=== PATIENT | female | born 1990 | race Caucasian/White ===

== ENCOUNTER 2022-07-14 12:27 | Emergency (ER) | payer OTHER, SELFPAY ==
[2022-07-14 12:36] VITALS: BP 130/66; PULSE 91; RESP 20; TEMP 37.3; O2SAT 98
--- NOTE | 2022-07-14 12:42 | ED.URI ---
HPI - URI/Sore Throat General Chief Complaint: Upper Respiratory Infection Stated Complaint: sinus issues Time Seen by Provider: 07/14/22 12:44 Source: patient and RN notes reviewed History of Present Illness HPI Narrative: Patient is a 32-year-old female who presents to urgent care with complaints of sinus congestion, drainage, watery eyes and sore throat. Patient states that started last night when she was outside fishing. Patient states she has a history of allergies. Patient has not taken anything [id number] for her symptoms. Denies any fever, nausea or vomiting. No other acute complaints. No acute distress noted. Patient aware of the plan of care. Some parts of this dictation were generated by voice recognition software and may contain typographical and/or grammatical inaccuracies. Related Data Home Medications Medication Instructions Recorded Confirmed No Home Medications 07/14/22 07/14/22 Allergies Allergy/AdvReac Type Severity Reaction Status Date / Time No Known Allergies Allergy Verified 07/14/22 12:40 Review of Systems Review of Systems: CONSTITUTIONAL: Denies fever, chills, or sweats. EYES: Denies visual changes, redness, or discharge. ENT: Reports of sinus congestion, sore throat, postnasal drainage CARDIOVASCULAR: Denies chest pain, palpitations, or edema. RESPIRATORY: Denies cough or dyspnea. GASTROINTESTINAL: Denies abdominal pain, nausea, vomiting, or diarrhea. GENITOURINARY: Denies dysuria or hematuria. SKIN: Denies rash or itching. MUSCULOSKELETAL: Denies back pain, joint pain, or myalgia. NEUROLOGIC: Denies headache, numbness, or weakness. All other systems reviewed are negative, except as documented in HPI. PMFSH Comments At the time of my signature, I reviewed and agree with the nursing past medical, surgical, social, and family history. There is no relevant family history pertinent to the patient complaint. Exam Narrative: GENERAL: This is a well-nourished, well-developed patient, in no apparent distress. HEAD: normocephalic, atraumatic. Frontal sinus tenderness reported EYES: PERRL. Sclera clear/white. Vision is grossly intact. EARS: External ears normal, auditory canals clear and without drainage, TMs normal without perforation. Hearing grossly intact. NOSE: External nose normal with no obvious nasal discharge, nares without redness, clear rhinorrhea. THROAT: Mucous membranes moist, posterior pharynx clear. Moderate postnasal drainage NECK: Neck supple CARDIOVASCULAR: Regular rate and rhythm RESPIRATORY: Clear to auscultation. Breath sounds equal bilaterally. No wheezes, rales, or rhonchi. SKIN: warm, intact with no suspicious lesions or rash, good texture and turgor. NEURO: awake, alert, and oriented to person, place and time. There were no obvious focal neurologic abnormalities. EXTREMITIES: No clubbing, cyanosis, or edema. Course Course Level of Care: Express Care Visit Vital Signs Vital signs: Vital Signs Temperature 99.1 F 07/14/22 12:36 Pulse Rate 91 07/14/22 12:36 Respiratory Rate 20 07/14/22 12:36 Blood Pressure 130/66 07/14/22 12:36 Pulse Oximetry 98 07/14/22 12:36 Oxygen Delivery Room Air 07/14/22 12:36 Temperature 99.1 F 07/14/22 12:36 Pulse Rate 91 07/14/22 12:36 Respiratory Rate 20 07/14/22 12:36 Blood Pressure 130/66 07/14/22 12:36 Pulse Oximetry 98 07/14/22 12:36 Oxygen Delivery Room Air 07/14/22 12:36 Reviewed MDM - URI/Sore Throat MDM Narrative Medical decision making narrative: Reviewed lab results with the patient. She is aware that strep swab was negative. Educated patient on culture we will call within 72 hours if culture is positive antibiotics are necessary. Advised patient to use Tylenol/ibuprofen as needed. Take a daily antihistamine such as Claritin or Zyrtec. Use Benadryl/Flonase prior to bedtime. Increase water intake. Do not sleep with a fan or the windows open. Follow-up with your PCP
== END 2022-07-14 13:05 | disposition home or self-care (01) ==
PROVIDERS: Emergency Provider Nurse Practitioner Family
DX: J32.9 Chronic sinusitis, unspecified (principal)
CPT/HCPCS: 87081; 87880; 99213; G0463